=== PATIENT | female | born 1955 | race Caucasian/White ===

== ENCOUNTER 2018-10-13 12:29 | Emergency (ER) | payer BC ==
[~2018-10-13] VITALS: Ht 165.1 cm; Wt 91.2 kg
[2018-10-13 12:41] VITALS: BP_SYST 154
--- NOTE | 2018-10-13 15:21 | NUR ---
Patient to ER bed H1 to gown for evaluation. Side rails up.
--- NOTE | 2018-10-13 15:28 | NUR ---
Patient presented to the ER with productive cough. Patient ambulatory to the ER, A&O x4, afebrile, respirations equal bilat. Patient states she has had cough for a week, today she felt worse with productive cough.
--- NOTE | 2018-10-13 15:29 | NUR ---
ER at bedside examining patient.
[2018-10-13] MEDS ORDERED: OSELTAMIVIR PHOSPHATE 75 MG CAPSULE PO ONE (15:30)
--- NOTE | 2018-10-13 15:50 | NUR ---
Patient given written and verbal discharge instructions and verbalizes understanding. ER MD Dr. Schaffer discussed with patient the results and treatment provided. Patient in stable condition. ID arm band removed. Rx of Tamiflu and zythromax given. Patient educated on pain management and to follow up with PMD. Pain Scale 0/10 Opportunity for questions provided and answered. Medication side effect fact sheet provided.
[2018-10-13 15:54] VITALS: BP_SYST 154
== END 2018-10-13 15:50 | disposition home or self-care (01) ==
LOC: SED 12:29
DX: J11.1 Influenza due to unidentified influenza virus with other respiratory manifestations (principal); J20.9 Acute bronchitis, unspecified; E11.9 Type 2 diabetes mellitus without complications; I10 Essential (primary) hypertension
CPT/HCPCS: 36415; 71046; 86710; 99284; G9035

== ENCOUNTER 2019-02-03 08:50 | Emergency (ER) | payer BC ==
[~2019-02-03] VITALS: Ht 165.1 cm; Wt 90.7 kg
[2019-02-03 08:55] VITALS: BP_SYST 164
--- NOTE | 2019-02-03 09:02 | NUR ---
Patient to ER bed 2 to gown for evaluation. Side rails up. Report given to Reji FERMIN.
--- NOTE | 2019-02-03 09:04 | NUR ---
Patient is awake, alert, and oriented x4. Patient is complaining of cold symptoms for 1 week, states she has a productive cough with yellow/green sputum.
--- NOTE | 2019-02-03 09:07 | NUR ---
ER Dr. Perez at bedside examining patient.
[2019-02-03] MEDS ORDERED: ALBUTEROL SULFATE 0.083% 2.5 MG/3 ML VIAL.NEB IH ONE (09:15)
[2019-02-03] MEDS ORDERED: IPRATROPIUM BROM 0.5 MG/2.5 ML VIAL.NEB (ATROVENT) IH ONE (09:15)
[2019-02-03 09:44] VITALS: BP_SYST 164
--- NOTE | 2019-02-03 09:45 | NUR ---
Patient given written and verbal discharge instructions and verbalizes understanding. ER MD discussed with patient the results and treatment provided. Patient in stable condition. ID arm band removed. Rx of zithromax, albuterol, tylenol, codeine/guaifenesin given. Patient educated on pain management and to follow up with PMD. Pain Scale 0/10. Opportunity for questions provided and answered. Medication side effect fact sheet provided.
== END 2019-02-03 09:45 | disposition home or self-care (01) ==
LOC: SED 08:50
DX: J40 Bronchitis, not specified as acute or chronic (principal); R05 Cough
CPT/HCPCS: 82962; 94640; 99283; J7613

== ENCOUNTER 2021-08-09 09:17 | Emergency (ER) | payer BC, OTHER ==
[~2021-08-09] VITALS: Ht 165.1 cm; Wt 81.6 kg
[2021-08-09 09:30] VITALS: BP_SYST 129
[2021-08-09 09:35] VITALS: BP_SYST 135
[2021-08-09] MEDS ORDERED: CEPH-548 PO (09:35)
[2021-08-09] MEDS ORDERED: SULF5DRO EACH EYE (09:35)
== END 2021-08-09 09:35 | disposition home or self-care (01) ==
LOC: SED 09:17
DX: H10.501 Unspecified blepharoconjunctivitis, right eye (principal); I10 Essential (primary) hypertension; E11.9 Type 2 diabetes mellitus without complications; Z79.899 Other long term (current) drug therapy
CPT/HCPCS: 99283